=== PATIENT | female | born 1980 | race Caucasian/White ===

== ENCOUNTER → 2018-08-19 | Outpatient (CLI) | payer OTHER ==
--- NOTE | 2018-08-20 09:54 | MM ---
Reason for exam: screening (asymptomatic). Baseline mammogram. History: Took hormonal contraceptives beginning at age 15. Physical Findings: Nurse did not find any significant physical abnormalities on exam. MG 3D Screening Mammo W/Cad Bilateral CC and MLO view(s) were taken. There are scattered fibroglandular densities. Density upper outer right breast. Additional views recommended. These results were verbally communicated with the patient and result sheet given to the patient on 08/19/18. ASSESSMENT: Incomplete: need additional imaging evaluation, BI-RAD 0 RECOMMENDATION: Special view mammogram of the right breast. If lesion persists on supplemental views, image directed ultrasound is recommended. [facility] will attempt to contact patient to return for supplemental views and ultrasound if indicated.
--- NOTE | 2018-08-20 09:55 | MM ---
Reason for exam: additional evaluation requested from abnormal screening. History: Took hormonal contraceptives beginning at age 15. Physical Findings: Breast exam preformed at baseline screening. MG 3D Work Up W/Cad RT ML and spot compression MLO view(s) were taken of the right breast. Density in question upper outer right breast is improved with spot images. These results were verbally communicated with the patient and result sheet given to the patient on 08/19/18. ASSESSMENT: Probably benign, BI-RAD 3 RECOMMENDATION: Follow-up diagnostic mammogram of the right breast in 6 months.
== END | disposition home or self-care (01) ==
LOC: RADMAMWWP 07:39
PROVIDERS: ATTEND Family Medicine
DX: Z12.31 Encounter for screening mammogram for malignant neoplasm of breast (principal); R92.8 Other abnormal and inconclusive findings on diagnostic imaging of breast
CPT/HCPCS: 77067; 77065; 77063; G0279; 77061

== ENCOUNTER → 2019-03-10 | Outpatient (CLI) | payer OTHER ==
--- NOTE | 2019-03-10 08:25 | MM ---
Reason for exam: follow-up at short interval from prior study. Last mammogram was performed 7 months ago. History: Took hormonal contraceptives beginning at age 15. Physical Findings: Nurse did not find any significant physical abnormalities on exam. MG 3D Diag Mammo W/Cad RT CC and MLO view(s) were taken of the right breast. Prior study comparison: August 19, 2018, right breast MG 3d work up w/cad RT. August 19, 2018, bilateral MG 3d screening mammo w/cad. There are scattered fibroglandular densities. There is no discrete abnormality. No significant new findings when compared with previous films. These results were verbally communicated with the patient and result sheet given to the patient on 03/10/19. ASSESSMENT: Benign, BI-RAD 2 RECOMMENDATION: Return to routine screening mammogram schedule for both breasts. Back on schedule for July 2019.
== END | disposition home or self-care (01) ==
LOC: RADMAMWWP 07:40
PROVIDERS: ATTEND Family Medicine
DX: R92.8 Other abnormal and inconclusive findings on diagnostic imaging of breast (principal)
CPT/HCPCS: 77065; G0279; 77061

== ENCOUNTER → 2019-09-22 | Outpatient (CLI) | payer OTHER ==
--- NOTE | 2019-09-23 12:01 | MM ---
Reason for exam: screening (asymptomatic). Last mammogram was performed 6 months ago. History: Took hormonal contraceptives beginning at age 15. Physical Findings: A clinical breast exam by your physician is recommended on an annual basis and results should be correlated with mammographic findings. MG 3D Screening Mammo W/Cad Bilateral CC and MLO view(s) were taken. Prior study comparison: March 10, 2019, right breast MG 3d diag mammo w/cad RT. August 19, 2018, right breast MG 3d work up w/cad RT. There are scattered fibroglandular densities. No suspicious abnormality. No significant changes when compared with prior studies. ASSESSMENT: Negative, BI-RAD 1 RECOMMENDATION: Routine screening mammogram of both breasts in 1 year.
== END | disposition home or self-care (01) ==
LOC: RADMAMWWP 07:18
PROVIDERS: ATTEND Family Medicine
DX: Z12.31 Encounter for screening mammogram for malignant neoplasm of breast (principal)
CPT/HCPCS: 77063; 77067

== ENCOUNTER 2020-04-02 16:21 | Observation (INO) | payer OTHER ==
[2020-04-02 16:53] VITALS: RESP 16
--- NOTE | 2020-04-02 17:19 | ED ---
Abdominal Pain HPI - General Chief Complaint: Abdominal Pain Stated Complaint: pelvic pain Time Seen by Provider: 04/02/20 16:45 Source: patient, family Mode of arrival: ambulatory Limitations: no limitations - History of Present Illness Initial Comments: The patient is a 39-year-old female who is , not currently who presents to the emergency department with reported diffuse abdominal pain. She was transferred from [facility]. She states that yesterday night at approximately 1:30 AM she was having intercourse with her significant other. She began having intense onset of abdominal pain. Is located in all 4 quadrants. She describes it as sharp in nature and worse with movement. She took Motrin for the pain and went to bed. States that when she woke in the morning the pain was 10 out of 10. She wanted to [facility] where they did complete laboratory studies, urinalysis, CT of her abdomen and pelvis and an ultrasound. Ultrasound read as a large right-sided ovarian mass measuring 9.4 cm they are unable to find blood flow. Because of this they were concerned for torsion transferred to a facility for [facility] evaluation. Patient arrives and states that her pain is 5 out of 10 when she is sitting still. Worse, 10 out of 10 with movement. She denies any associated nausea, vomiting, fevers or chills. No chest pain or shortness of breath. Her last menstrual cycle was on February 22. States her menstrual cycles are not regular. Normally has one every month and a half. She denies any abnormal vaginal bleeding or discharge at this time. There are no other alleviating, precipitating or modifying factors - Related Data Home Medications Medication Instructions Recorded Confirmed Citalopram Hydrobromide 40 mg PO DAILY 04/02/20 04/02/20 [Citalopram HBr] Famotidine 40 mg PO DAILY 04/02/20 04/02/20 buPROPion XL [Wellbutrin XL] 150 mg PO DAILY 04/02/20 04/02/20 Previous Rx's Medication Instructions Recorded Acetaminophen-Codeine 300-30mg 2 each PO Q6HR PRN #24 tab 04/02/20 [Tylenol w/codeine #3] Ibuprofen [Motrin] 600 mg PO Q6HR PRN #30 tab 04/02/20 Allergies Allergy/AdvReac Type Severity Reaction Status Date / Time Penicillins Allergy Rash/Hives Verified 04/02/20 16:49 Review of Systems ROS Statement: Those systems with pertinent positive or pertinent negative responses have been documented in the HPI. ROS Other: All systems not noted in ROS Statement are negative. Past Medical History Past Medical History: No Reported History History of Any Multi-Drug Resistant Organisms: None Reported Past Surgical History: Tubal Ligation Additional Past Surgical History / Comment(s): Ear surgery, sinus surgery Past Psychological History: Depression Smoking Status: Never smoker Past Alcohol Use History: Daily Past Drug Use History: None Reported General Exam Limitations: no limitations General appearance: alert, in no apparent distress Head exam: Present: atraumatic, normocephalic, normal inspection Eye exam: Present: normal appearance, PERRL, EOMI. Absent: scleral icterus, conjunctival injection, periorbital swelling ENT exam: Present: normal exam, mucous membranes moist Neck exam: Present: normal inspection. Absent: tenderness, meningismus, lymphadenopathy Respiratory exam: Present: normal lung sounds bilaterally. Absent: respiratory distress, wheezes, rales, rhonchi, stridor Cardiovascular Exam: Present: regular rate, normal rhythm, normal heart sounds. Absent: systolic murmur, diastolic murmur, rubs, gallop, clicks GI/Abdominal exam: Present: soft, tenderness, guarding, rebound, rigid, normal bowel sounds, other (positive peritoneal signs. Pain in all 4 quadrants). Absent: distended Extremities exam: Present: normal inspection, full ROM, normal capillary refill. Absent: tenderness, pedal edema, joint swelling, calf tenderness Back exam: Present: normal inspection Neurological exam: Present: alert, oriented X3, CN II-XII intact Psychiatric exam: Present: normal affect, normal mood Skin exam: Present: warm, dry, intact, normal color. Absent: rash Course Vital Signs 04/02/20 04/02/20 16:42 18:00 Temperature 98.1 F Pulse Rate 72 92 Respiratory 16 16 Rate Blood Pressure 104/73 111/63 O2 Sat by Pulse 98 98 Oximetry Medical Decision Making - Medical Decision Making Upon arrival the patient is placed into room 2. A thorough history and physical exam was performed. Patient continues to have pain with palpation in all 4 quadrants. I did review the patient's transfer records from [facility]. I then discussed the case with Dr. Markham at [id number]. She does arrive to the emergency department and evaluates the patient. She discusses the case with me at 1734 and states that she will take the patient's or at this time. Patient is started on lactated Ringer's at 100 mL per hour. She is nothing by mouth and a type and screen is performed. Patient is then taken to the OR in stable condition - Lab Data Lab Results 04/02/20 04/02/20 Range/Units 17:45 17:56 Coronavirus (PCR) Not Detected (Not Detected) Blood Type O Positive Blood Type Recheck O Pos Bld Type Recheck Status No Antibody Screen NEGATIVE Spec Expiration Date 04/05/2020 - 2344 Disposition Clinical Impression: Ovarian torsion, Pelvic mass Disposition: ADMITTED IP TO THIS HOSP Condition: Stable Is patient prescribed a controlled substance at d/c from ED?: No Decision to Admit Reason: Admit from EC Decision Date: 04/02/20 Decision Time: 18:23
[2020-04-02] MEDS ORDERED: LACTATED RINGERS 1,000 ML IV ONE ×2 (17:34→19:18)
--- NOTE | 2020-04-02 17:58 | P.HPOB ---
History of Present Illness H&P Date: 04/02/20 Chief Complaint: ABdominal pain 39 year old presents complaining of sudden onset abdominal pain. The pain started during intercourse at 1:30 am. It was sudden, sharp, diffuse and intense. It was enough to take her to [facility] ER where they did a CT and US. CT showed 9x6cm pelvic mass and US showed limited or no flow to the right ovary/mass. I discussed the possibility of torsion of the ovary and the need for operative care. We discussed diagnostic laparoscopy with possible oopherectomy, possible laparotomy. I reviewed risks, benefits and alternatives with patient and her . Review of Systems All systems: negative Constitutional: Denies chills, Denies fever Eyes: denies blurred vision, denies pain Ears, nose, mouth and throat: Denies headache, Denies sore throat Cardiovascular: Denies chest pain, Denies shortness of breath Respiratory: Denies cough Gastrointestinal: Denies abdominal pain, Denies diarrhea, Denies nausea, Denies vomiting Genitourinary: Denies dysuria, Denies hematuria Musculoskeletal: Denies myalgias Integumentary: Denies pruritus, Denies rash Neurological: Denies numbness, Denies weakness Psychiatric: Denies anxiety, Denies depression Endocrine: Denies fatigue, Denies weight change Past Medical History Past Medical History: No Reported History Additional Past Medical History / Comment(s): OB history: She has had 2 vaginal deliveries. History of Any Multi-Drug Resistant Organisms: None Reported Past Surgical History: Tubal Ligation Additional Past Surgical History / Comment(s): Ear surgery, sinus surgery Past Psychological History: Depression Smoking Status: Never smoker Past Alcohol Use History: Daily Past Drug Use History: None Reported Medications and Allergies Allergies Allergy/AdvReac Type Severity Reaction Status Date / Time Penicillins Allergy Rash/Hives Verified 04/02/20 16:49 Exam Osteopathic Statement: *. No significant issues noted on an osteopathic structural exam other than those noted in the History and Physical/Consult. Vital Signs Temp Pulse Resp BP Pulse Ox 04/02/20 16:42 98.1 F 72 16 104/73 98 Intake and Output 04/02/20 04/02/20 04/02/20 06:59 14:59 22:59 Other: Weight 65.771 kg Heart: RRR Lungs: CTAB Abdomen: soft, tender with palpation diffusely but most in the RLQ, no rebound or rigidity Extremeties: tyson hilario's Assessment and Plan (1) Ovarian torsion Current Visit: Yes Status: Acute Code(s): N83.519 - TORSION OF OVARY AND OVARIAN PEDICLE, UNSPECIFIED SIDE SNOMED Code(s): 93875187 (2) Pelvic mass Current Visit: Yes Status: Acute Code(s): R19.00 - INTRA-ABD AND PELVIC SWELLING, MASS AND LUMP, UNSP SITE SNOMED Code(s): 68451726 Plan: 1. diagnostic laparoscopy, possible oophorectomy, possible laparotomy. Risks, benefits and alternatives were discussed with the patient and her . They expressed complete understanding and would like to go ahead with procedure.
[2020-04-02] MEDS ORDERED: NALOXONE 0.4 MG/ML 1 ML VIAL IV PRN (18:21)
[2020-04-02] MEDS ORDERED: GLYCOPYRROLATE 0.2 MG/ML 2 ML VIAL ONE (18:34)
[2020-04-02] MEDS ORDERED: ROCURONIUM BROMIDE 10 MG/ML 5 ML VIAL IV ONE (18:34)
[2020-04-02] MEDS ORDERED: MIDAZOLAM 2 MG/2 ML VIAL ONE (18:34)
[2020-04-02] MEDS ORDERED: KETOROLAC 30 MG/ML 1 ML VIAL ONE (18:34)
[2020-04-02] MEDS ORDERED: PROPOFOL 10 MG/ML 20 ML VIAL IV ONE (18:34)
[2020-04-02] MEDS ORDERED: IV FLUID CONTINUATION 800 ML IV ONE (18:34)
[2020-04-02] MEDS ORDERED: fentaNYL (PF) 50 MCG/ML 2 ML AMP ONE (18:34)
[2020-04-02] MEDS ORDERED: NEOSTIGMINE 1 MG/ML 10 ML VIAL ONE (18:34)
[2020-04-02] MEDS ORDERED: LIDOCAINE 1% INJ 10MG/ML (20 ML MDV) ONE (18:34)
[2020-04-02] MEDS ORDERED: SUCCINYLCHOLINE CHLORIDE 100 MG/5 ML SYR IV ONE (18:34)
[2020-04-02] MEDS ORDERED: SODIUM CHLORIDE 0.9% 50 ML with ceFAZolin 2,000 MG IV ONE ×2 (18:34)
[2020-04-02] MEDS ORDERED: BUPIVACAINE (PF) 0.25% 30 ML VIAL SQ ONE (19:05)
[2020-04-02] MEDS ORDERED: MEPERIDINE 50 MG/ML SYRINGE IVP ONE ×2 (19:57→20:15)
[2020-04-02] MEDS ORDERED: HYDROmorphone 0.5 MG/0.5 ML SYRINGE IVP ONE (19:57)
[2020-04-02] MEDS ORDERED: Acetaminophen-Codeine 300-30mg TAB PO PRN ×2 (20:23)
[2020-04-02] MEDS ORDERED: SIMETHICONE 80 MG CHEWABLE PO PRN (20:23)
[2020-04-02] MEDS ORDERED: diphenhydrAMINE 50 MG/ML 1 ML VIAL IVP PRN (20:23)
[2020-04-02] MEDS ORDERED: ONDANSETRON 4 MG/2 ML VIAL IVP PRN (20:23)
[2020-04-02] MEDS ORDERED: ZOLPIDEM 5 MG TAB PO PRN (20:23)
[2020-04-02] MEDS ORDERED: METOCLOPRAMIDE 5 MG/ML 2 ML VIAL IVP PRN (20:23)
[2020-04-02] MEDS ORDERED: IBUPROFEN 600 MG TAB PO PRN (20:23)
--- NOTE | 2020-04-02 20:33 | P.OP ---
Date of Procedure: 04/02/20 Preoperative Diagnosis: 1. pelvic mass-suspect ovarian torsion Postoperative Diagnosis: 1. ruptured hemorrhagic cyst right ovary 2. hemoperitoneum Procedure(s) Performed: Diagnostic laparoscopy, evacuation of hemoperitoneum, cauterization of bleeding right ovary Anesthesia: JOHN Surgeon: Karon Markham Estimated Blood Loss (ml): 100 IV fluids (ml): 500 Urine output (ml): 75 Pathology: none sent Condition: stable Disposition: PACU Operative Findings: Normal uterus, fallopian tubes with Filshie clips noted, filmy adhesions from the left fallopian tube to the bowel, hemoperitoneum, large blood clot attached to cyst on right ovary. Description of Procedure: Patient is taken the operating room where general anesthesia was obtained without difficulty. She is prepped and draped in normal sterile fashion dorsal lithotomy position, legs placed in the Cameron stirrups. Bladder was drained of all urine. Weighted speculum place in vagina the anterior lip the cervix was grasped with single-tooth tenaculum. Uterus sounded to 8-1/2 cm and the kroner manipulator was placed. Attention was then turned to the abdomen and gloves were changed. A 10 mm infraumbilical incision was made the scalpel. The 10 mm optical trocar was placed under direct visualization. Immediately visualized was blunted side of the abdomen. A 5 mm suprapubic incision was made the scalpel and a 5 mm optical trocar was placed under direct visualization. Survey of the pelvis revealed normal uterus Filshie clips on both ovaries, a large blood clot attached to the right ovary, free blood and clot in the cul-de-sac. Using the suction to remove the blood out of the abdomen along with the blood clots. The hook cautery place used to cauterize any areas on the ovary that appeared to be bleeding. The blood clot freed itself of the ovary so I did free up the rest of the way. There were some more areas of bleeding on the right ovary which was opened at this point. The bleeding areas were cauterized and hemostasis was assured. To determine that hemostasis was assured, a 5 mm incision was made on the left side of the patient's abdomen in order to have another port to hold the ovary up with an atraumatic grasper while I cauterized and irrigated. The #10 bag was introduced into the abdomen and some of the blood clot was placed in the bag and removed. Hemostasis was again assured and the pelvis was irrigated. Patient tolerated procedure well, sponge and instrument counts correct 2. She is taken to recovery in stable condition.
[2020-04-03 01:36] VITALS: TEMP 98.9
[2020-04-03 01:37] VITALS: BP 112/68; PULSE 87
--- NOTE | 2020-04-12 23:16 | P.DS ---
Providers Date of admission: 04/02/20 18:21 Expected date of discharge: 04/02/20 Attending physician: Karon Markham Primary care physician: Chong Talavera - Discharge Diagnosis(es) (1) Ovarian torsion Status: Ruled-out (2) Pelvic mass Status: Resolved (3) Status post laparoscopy Status: Acute Hospital Course: Patient presented to the emergency room with abdominal pain and was thought to be a pelvic mass. She underwent a laparoscopic procedure with drainage of hemoperitoneum and cauterization of the right ovary which was bleeding from a ruptured hemorrhagic cyst. She was discharged home a few hours after her procedure in stable condition to follow-up with me in 2 weeks. Patient Condition at Discharge: Stable Plan - Discharge Summary New Discharge Prescriptions: New Ibuprofen [Motrin] 600 mg PO Q6HR PRN #30 tab PRN Reason: Mild Discomfort Acetaminophen-Codeine 300-30mg [Tylenol w/codeine #3] 2 each PO Q6HR PRN #24 tab PRN Reason: Severe Pain No Action Famotidine 40 mg PO DAILY buPROPion XL [Wellbutrin XL] 150 mg PO DAILY Citalopram Hydrobromide [Citalopram HBr] 40 mg PO DAILY Discharge Medication List Acetaminophen-Codeine 300-30mg [Tylenol w/codeine #3] 2 each PO Q6HR PRN #24 tab 04/02/20 [Rx] Citalopram Hydrobromide [Citalopram HBr] 40 mg PO DAILY 04/02/20 [History] Famotidine 40 mg PO DAILY 04/02/20 [History] Ibuprofen [Motrin] 600 mg PO Q6HR PRN #30 tab 04/02/20 [Rx] buPROPion XL [Wellbutrin XL] 150 mg PO DAILY 04/02/20 [History] Follow up Appointment(s)/Referral(s): Chong Talavera MD [Primary Care Provider] - 1-2 days Karon Markham DO [Doctor of Osteopathic Medicine] - 3 Weeks Patient Instructions/Handouts: Exploratory Laparoscopy (DC) Activity/Diet/Wound Care/Special Instructions: No lifting anything heavier than 20lbs Off work for 1 week May shower tomorrow 04/03 Discharge Disposition: HOME SELF-CARE
== END 2020-04-03 01:30 | disposition home or self-care (01) ==
LOC: EC 16:21 → 4FBP 18:21
PROVIDERS: ADMIT Obstetrics & Gynecology; ATTEND Obstetrics & Gynecology
DX: N83.201 Unspecified ovarian cyst, right side (principal); K66.1 Hemoperitoneum; K66.0 Peritoneal adhesions (postprocedural) (postinfection); F32.9 Major depressive disorder, single episode, unspecified; Z98.51 Tubal ligation status; Z98.890 Other specified postprocedural states; Z88.0 Allergy status to penicillin; K21.9 Gastro-esophageal reflux disease without esophagitis
CPT/HCPCS: 58679; 99284; 86900; 86901; 86850; G0378 ×2; U0003; J2250; J2710; J2175; J0690; J2001; J3010; J1885; J0330; J2704; J1170

== ENCOUNTER → 2021-03-13 | Outpatient (CLI) | payer BC ==
--- NOTE | 2021-03-15 09:08 | MM ---
Reason for exam: screening (asymptomatic). Last mammogram was performed 1 year and 6 months ago. History: Took hormonal contraceptives beginning at age 15. Physical Findings: A clinical breast exam by your physician is recommended on an annual basis and results should be correlated with mammographic findings. MG 3D Screening Mammo W/Cad Bilateral CC and MLO view(s) were taken. Prior study comparison: September 22, 2019, bilateral MG 3d screening mammo w/cad. March 10, 2019, right breast MG 3d diag mammo w/cad RT. The breast tissue is heterogeneously dense. This may lower the sensitivity of mammography. No significant changes when compared with prior studies. ASSESSMENT: Negative, BI-RAD 1 RECOMMENDATION: Routine screening mammogram of both breasts in 1 year.
== END | disposition home or self-care (01) ==
LOC: RADMAMWWP 07:30
PROVIDERS: ATTEND Family Medicine
DX: Z12.31 Encounter for screening mammogram for malignant neoplasm of breast (principal)
CPT/HCPCS: 77063; 77067

== ENCOUNTER → 2022-09-17 | Outpatient (CLI) | payer BC ==
--- NOTE | 2022-09-18 08:28 | MM ---
Reason for Exam: Screening (asymptomatic). Last mammogram was performed 1 year(s) and 6 month(s) ago. Patient History: Menarche at age 12. First Full-Term at age 26. Hormonal Contraceptives, from age 15 until age 20. Maternal aunt had ovarian cancer, age 65. Last menstrual period: 09/14/2022 Risk Values: Hannah 5 year model risk: 0.8%. NCI Lifetime model risk: 9.8%. Prior Study Comparison: 03/10/2019 Right Diagnostic Mammogram, [facility]. 09/22/2019 Bilateral Screening Mammogram, [facility]. 03/13/2021 Bilateral Screening Mammogram, [facility]. Tissue Density: The breast tissue is heterogeneously dense. This may lower the sensitivity of mammography. Findings: Analyzed By CAD. There is no suspicious group of microcalcifications or new suspicious mass in either breast. Overall Assessment: Negative, BI-RAD 1 Management: Screening Mammogram of both breasts in 1 year. A clinical breast exam by your physician is recommended on an annual basis and results should be correlated with mammographic findings. Electronically signed and approved by: Farhad Arnold M.D. Radiologis
== END | disposition home or self-care (01) ==
LOC: RADMAMWWP 07:35
PROVIDERS: ATTEND Family Medicine
DX: Z12.31 Encounter for screening mammogram for malignant neoplasm of breast (principal); Z80.41 Family history of malignant neoplasm of ovary
CPT/HCPCS: 77063; 77067